=== PATIENT | male | born 1960 | race Caucasian/White ===

== ENCOUNTER 2025-06-07 13:03 | Outpatient (AMB) | payer OTHER, SELFPAY ==
--- OUTSIDE RECORDS SUMMARY | 2025-05-15 12:00 | XMS_ITS ---
Author Organization [facility] Address [address] [place] [id number] Care Team Providers Care Plant Ecologist Name Role Phone ELPIDIO VENTURA Primary Care Provider EBONY, NURSING [facility] [phone] REASON FOR VISIT N/36/Holter Monitor 48 hours SOCIAL HISTORY Sex Assigned At : Social History Observation Description Sex Assigned At Male Encounters Encounter Location Date Provider Diagnosis [address] [address] 05/15/2025 NURSING EBONY PLAN OF TREATMENT Next Appt Details Provider Name:ELPIDIO VENTURA, 08/10/2025 08:00:00 AM, [address] [place], [phone],
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
[2025-06-07 13:43] VITALS: BP 126/74; PULSE 63; O2SAT 99; BMI 29.1
--- OUTSIDE RECORDS SUMMARY | 2025-06-07 13:57 | XMS_ITS ---
Author Name [facility] Organization Unknown History of Medication Use Medication Directions Dispensed Refills Start Date End Date Stat us LipitorTakeNo date r ecordedNo form recordedNo frequency recordedNo route recordedNo set duration recordedNo set duration amount recordedactiveNo dosage strength recordedNo dosage strength units of measure recorded active Allergies Allergen Reaction Severity Comment Documented Date Source Statu s .NO KNOWN DRUG ALLERGIES [facility] Problems Problem Status Onset Date Problem Type Date of Resolution Source Hyperlipidemia, unspecified active ProblemAct [facility] Acute sinusitis, unspecified active 2024-04-01 ProblemAct [facility] Equinus - Short Achilles tendon, LEFT active 2024-07-27 ProblemAct [facility]POD[facility] [id number] - Contracture of tendo achilles active 2024-12-13 EncounterDiagnosisAct [facility] Plantar fasciitis active 2024-12-13 EncounterDiagnosisAct [facility] Heel pain active 2024-07-27 ProblemAct [facility] RCT Calcaneal spur, right foot active 2024-07-27 ProblemAct [facility] Encounters Encounter Type Encounter Reason Primary Diagnosis Location Date [facility] 2023 [facility] 04/01/2024 Care Team Organization Name Specialty Phone Email Start Date End [facility] Cesar Acevedo Primary [facility] 07/13/[facility] 07/12/2024 [facility] Not Disclosed Primary Care 04/02/2024 [facility] Not Disclosed Primary Care 04/01/2024
--- OUTSIDE RECORDS SUMMARY | 2025-06-07 13:57 | XMS_ITS | Clinical Summary ---
Author Organization [facility] Address [address] [place] [address] Care Team Providers Care Clay Products Glazer Name Role Phone Federally Excluded Kamar Perez MD Primar y Care Provider Medical History Medical History Date Comments Hyperlipidemia DX:Hyperlipidemi a Diabetes mellitus type 2, co ntrolled, with complications (CMS/HCC V24, CMS/HCC V28) DX:Diabetes mellitus type 2, controlled, with complications (HCC) Family History Medical History Relation Name Comments Parkinson's Disease Father Lung cancer Mother Relation Name Status Comments Father Mother Social History Tobacco Use Types Packs/Day Years Used Date Smoking Tobacco: Never Smokeless Tobacco: Never Alcohol Use Standard Drinks/Week Comments Yes 0 (1 standard drink = 0.6 oz pur e alcohol) Sex and Gender Information Value Date Recorded Sex Assigned at Not on file Legal Sex Male 8:43 AM EST Gender Identity Not on file Sexual Orientation Not on file Obstetrics History Plan of Treatment Health Maintenance Due Date Last Done Comments DTaP,Tdap,and Td Vaccines (1 - Tdap) 1977 Pneumococcal Vaccine: 50+ Ye ars (1 of 1 - PCV) 2008 Zoster Vaccines (1 of 2) 2008 COVID-19 Vaccine ( - 2023-2 5 season) 2024 Depression Screening 10/19/2024 Influenza Vaccine (#1) 2025 RSV Immunization Adult Patie nts (1 - 1-dose 75+ series) 2033 HIB Vaccines Aged Out No longer eligi ble based on patient's age to complete this topic HPV Vaccines Aged Out No longer eligi ble based on patient's age to complete this topic Hepatitis A Vaccines Aged Out No long er eligible based on patient's age to complete this topic Hepatitis B Vaccines Aged Out No long er eligible based on patient's age to complete this topic IPV Vaccines Aged Out No longer eligi ble based on patient's age to complete this topic MMR Vaccines Aged Out No longer eligi ble based on patient's age to complete this topic Meningococcal ACWY Vaccine Aged Out N o longer eligible based on patient's age to complete this topic Meningococcal B Vaccine Aged Out No l onger eligible based on patient's age to complete this topic RSV Immunization Patients Un anna 20 months Aged Out No longer eligible b ased on patient's age to complete this topic Varicella Vaccines Aged Out No longer eligible based on patient's age to complete this topic Care Teams Clay Products Glazer Relationship Specialty Start Date End Date Federally Excluded Kamar Perez MD [address] [place] [phone] PCP - General Internal Medicine 08/16/21
== END 2025-06-07 14:24 | disposition home or self-care (01) ==
LOC: HO.HSMS 13:04
PROVIDERS: PCP Internal Medicine; Visit Provider Physician Assistant Medical
DX: G47.19 Other hypersomnia (principal); R06.83 Snoring; R53.82 Chronic fatigue, unspecified
CPT/HCPCS: 99204

== ENCOUNTER 2025-09-11 10:58 | Outpatient (AMB) | payer OTHER, SELFPAY ==
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
[2025-09-11 11:04] VITALS: BP 124/86; PULSE 59; O2SAT 99; BMI 29.0
--- OUTSIDE RECORDS SUMMARY | 2025-09-11 14:05 | XMS_ITS | Clinical Summary ---
Author Organization [facility] Address [address] [place] [address] Phone Care Team Providers Care Cuff Runner Name Role Phone KristinaCesar robert Andrew MENDEZ Primary Care Provider [phone] Encounters Date Type Department Care Team Description 07/24/2025 Telephone Plastic & Reconstructive Surgery [facility] [address] [place] [address] Iliana Somers MA from Last 3 Months Medical History Medical History Date Comments Hyperlipidemia DX:Hyperlipidemi a Diabetes mellitus type 2, co ntrolled, with complications (CMS/HCC V24, CMS/HCC V28) DX:Diabetes mellitus type 2, controlled, with complications ([facility]) Family History Medical History Relation Name Comments [...] Health Maintenance Due Date Last Done Comments Colorectal Cancer Screening: Colonoscopy 1960 Diabetes: Annual GFR (Glomer ular Filtration Rate) 1958 Diabetes: Annual Foot Exam 1968 Diabetes: Annual Retina Eye Exam 1968 DTaP,Tdap,and Td Vaccines (1 - Tdap) 1977 Pneumococcal Vaccine: 50+ Ye ars (1 of 1 - PCV) 2008 Zoster Vaccines (1 of 2) 2008 Depression Screening 10/19/2024 COVID-19 Vaccine ( - 2024-2 6 season) 2025 Influenza Vaccine (#1) 2025 Abdominal Aortic Aneurysm (A AA) Screen 07/11/2025 Cholesterol Screening (Lipid Panel) 07/11/2025 Diabetes: Annual Urine Albumin-Creatinine Ratio (uACR) 07/11/2025 Diabetes: Blood Sugar Contro l Test (HGBA1C) 07/11/2025 Falls Risk Assessment 07/11/2025 Hepatitis C Screening 07/11/2025 Social Influencers of Health Screening 07/11/2025 RSV Immunization Adult Patie nts (1 - [...] on patient's age to complete this topic Insurance [facility] Care Teams Cuff Runner Relationship Specialty Start Date End Date Cesar Acevedo DO [address] [place] [id number] PCP - General Internal Medicine 07/12/25
--- OUTSIDE RECORDS SUMMARY | 2025-09-11 14:05 | XMS_ITS | Clinical Summary ---
Author Organization [facility] Address [address] [place] [address] Phone Care Team Providers Care Quill Picking Machine Operator Name Role Phone Cesar Acevedo DO Primary Care Provider +1- [phone] Allergies No known active allergies Medications atorvastatin (LIPITOR) 40 MG tablet Take 40 mg by mouth once. 2019 Active cholecalciferol (VITAMIN D3) 2,000 unit capsule daily. 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 Not on jarrod e 11/23/2023 Are you concerned about learning? Not on file 11/23/2023 No 11/23/2023 No 11/23/2023 Digital Access Answer Date Recorded No 11/23/2023 No 11/23/2023 Reliable internet access at home? Not on file 11/23/2023 Device with a working camera? Not on file Sex and Gender Information Value Date Recorded Sex Assigned at Male 11/27/2023 12:36 PM EST Legal Sex Male 2:33 PM EST Gender Identity Male 11/27/2023 12:36 PM EST Sexual Orientation Not on file Last Filed Vital Signs Vital Sign Reading Time Taken Comments Blood Pressure 136/82 12/04/2023 11:08 AM EST Pulse 63 12/04/2023 11:08 AM EST Temperature - - Respiratory Rate - - Oxygen Saturation - - Inhaled Oxygen Concentration - - Weight 88.9 kg (196 lb) 12/04/2023 11:08 AM EST Height 174.6 cm (5' 8.75 ) 12/04/2023 11:[address] shoes on Body Mass Index 29.16 12/04/2023 11:08 AM EST Plan of Treatment Health Maintenance Due Date Last Done Comments Adult Td,Tdap Booster 1958 LIPID PANEL 1958 DEPRESSION SCREENING 1970 HEPATITIS C SCREENING 1976 PNEUMOCOCCAL VACCINES (50+ y ears) (1 of 2 - PCV) 1977 ZOSTER VACCINES (1 of 2) 1977 SMOKING STATUS SCREENING (On ce After 26 Yrs) 1984 SCREENING FOR DIABETES 1993 COLOGUARD 2003 COLONOSCOPY 2003 COLORECTAL CANCER SCREENING 2003 FIT TEST 2003 FOBT 2003 SIGMOIDOSCOPY 2003 VIRTUAL COLONOSCOPY 2003 INFLUENZA VACCINE (#1) 2025 COVID-19 VACCINE (1 - 2024-2 6 season) 2025 RSV VACCINE (1 - 1-dose 75+ series) 2033 HEPATITIS A VACCINES Aged Out No long er eligible based on patient's age to complete this topic HIB VACCINES Aged Out No longer eligi ble based on patient's age to complete this topic MENINGOCOCCAL VACCINES (ACWY) Aged Out No longer eligible based on patient's age to complete this topic MENINGOCOCCAL VACCINES (B) Aged Out N o longer eligible based on patient's age to complete this topic Medical Devices Not on file [facility] [address] [facility] O O Care Teams Quill Picking Machine Operator Relationship Specialty Start Date End Date Cesar Acevedo DO [address] [place] [address] PCP - General Internal Medicine 11/23/23 Additional Source Comments The information contained in this document represents components of the legal health record. It is not the complete legal health record.[facility]
== END 2025-09-11 11:37 | disposition home or self-care (01) ==
LOC: HO.HSMS 10:59
PROVIDERS: PCP Internal Medicine; Visit Provider Physician Assistant Medical
DX: G47.19 Other hypersomnia (principal); R06.83 Snoring; R53.82 Chronic fatigue, unspecified
CPT/HCPCS: 99214

== ENCOUNTER → 2025-10-18 10:06 | Outpatient (REF) | payer OTHER, SELFPAY ==
--- OUTSIDE RECORDS SUMMARY | 2025-01-03 04:40 | XMS_ITS ---
Author Organization [facility] Address [address] [place] [address] Care Team Providers Care Operations Manager Assistant Name Role Phone DR. ELPIDIO VENTURA Primary Care Provider [phone] ZEINAB KESSLER [phone] REASON FOR VISIT JW/36/lower back pain Social History Sex Assigned At : Social History Observation Description Sex Assigned At Male Encounters Encounter Location Date Provider Diagnosis [address] [address] 01/03/2025 ZEIANB KESSLER Plan Of Treatment Next Appt Details Provider Name:ELPIDIO MONAE, 02/06/2026 08:00:00 AM, [address] [place] [address], [phone], Progress Notes * LEVI DELGADODOB:[birth year] (64 yo M)Acc No.[id number]:01/03/2025 Progress Notes Patient: LEVI CASTELLANOS Provider: Andrew Kessler PA-C :1960 A ge:64 Y S ex:Male Date:01/03/2025 Address: [address] [address], [address] [facility] Pcp:DR. ELPIDIO VENTURA Subjective: * Chief Complaints: * J W/36/lower back pain Billing Information: * Procedure Codes: * Electronic signature of KARENA KESSLER PA-C on 10/18/2025 at 11:08 AM EST Sign off status: Pending * Provider: Andrew Kessler PA-C Date: 0 01/03/2025 Generated for Ericka graf/Filiberto/Constance on: 1 11:08 AM EST
--- OUTSIDE RECORDS SUMMARY | 2025-05-15 11:00 | XMS_ITS ---
Author Organization [facility] Address [address] [place] [address] Care Team Providers Care Sample Display Preparer Name Role Phone DR. ELPIDIO VENTURA Primary Care Provider [place], NURSING Unavailable [phone] REASON FOR VISIT N/36/Holter Monitor 48 hours Social History Sex Assigned At : Social History Observation Description Sex Assigned At Male Encounters Encounter Location Date Provider Diagnosis [place] [phone] 05/15/2025 NURSING [place] Plan Of Treatment Next Appt Details Provider Name:ELPIDIO MONAE, 02/06/2026 08:00:00 AM, [address] [place] [address], [phone], Progress Notes * LEVI DELGADODOB:[birth year] (64 yo M)Acc No.[id number]:05/15/2025 Progress Notes Patient: LEVI CASTELLANOS Provider: Nilsa Mehta :1960 A ge:64 Y S ex:Male Date:05/15/2025 Address: [address] [address], [address] [id number] Pcp:DR. ELPIDIO VENTURA Subjective: * Chief Complaints: * N /36/Holter Monitor 48 hours * Electronic signature of NURS ING ILEANAFIELD on 10/18/2025 at 11:07 AM EST Sign off status: Pending * Provider: Harish denis, Nursing Date: 0 05/15/2025 Generated for Ericka graf/Filiberto/Constance on: 1 11:07 AM EST
--- OUTSIDE RECORDS SUMMARY | 2025-07-06 05:00 | XMS_ITS ---
Author Organization [facility] Address [address] [place] [address] Care Team Providers Care Internal Revenue Service Agent Name Role Phone DR. ELPIDIO VENTURA Primary Care Provider REASON FOR VISIT 36/CPX Social History Sex Assigned At : Social History Observation Description Sex Assigned At Male Encounters Encounter Location Date Provider Diagnosis [address] [address] 07/06/2025 ELPIDIO VENTURA Plan Of Treatment Next Appt Details Provider Name:ELPIDIO MONAE, 02/06/2026 08:00:00 AM, [address] [place], [address], Progress Notes * JESUSITALEVI VizcarraDOB:[birth year] (64 yo M)Acc No.[id number]:07/06/2025 Progress Notes Patient: LEVI CASTELLANOS Provider: Karthikeyan VENTURA MD :1960 A ge:64 Y S ex:Male Date:07/06/2025 Address: [address] [address], [address] [place] Subjective: * Chief Complaints: * 3 6/CPX * Electronic signature of DR. ELPIDIO VENTURA M.D. on 10/18/2025 at 11:07 AM EST Sign off status: Pending * Provider: Karthikeyan VENTURA MD Date: 0 07/06/2025 Generated for Ericka graf/Filiberto/Constance on: 1 11:07 AM EST
--- OUTSIDE RECORDS SUMMARY | 2025-10-18 11:08 | XMS_ITS | Clinical Summary ---
Author Organization [facility] Address [address] [place] [address] Phone Care Team Providers Care Technology Sales Specialist Name Role Phone KristinaCesar robert Andrew MENDEZ Primary Care Provider Encounters Date Type Department Care Team Description 07/24/2025 Telephone Plastic & Reconstructive Surgery [facility] [address] [place] [address] Iliana Somers MA from Last 3 Months Medical History Medical History Date Comments Hyperlipidemia DX:Hyperlipidemi a Diabetes mellitus type 2, co ntrolled, with complications (CMS/HCC V24, CMS/HCC V28) DX:Diabetes mellitus type 2, controlled, with complications ([facility]) Family History Medical History Relation Name Comments [...] on file Sexual Orientation Not on file Plan of Treatment Health Maintenance Due Date [...] patient's age to complete this topic Insurance [facility] Care Teams Technology Sales Specialist Relationship Specialty Start Date End Date Cesar Acevedo DO [address] [place] [address] PCP - General Internal Medicine 07/12/25
--- OUTSIDE RECORDS SUMMARY | 2025-10-18 11:08 | XMS_ITS | Clinical Summary ---
Author Organization [facility] Address [address] [place] [address] Phone Care Team Providers Care Occupational Analyst Name Role Phone Cesar Acevedo DO Primary Care Provider +1- [phone] Allergies No known active allergies Medications atorvastatin [...] topic Medical Devices Not on file [facility] [address] [facility] O O Care Teams Occupational Analyst Relationship Specialty Start Date End Date Cesar Acevedo DO [address] [place] [address] PCP - General Internal Medicine 11/23/23 Additional Source Comments The information contained in this document represents components of the legal health record. It is not the complete legal health record.[facility]
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
== END ==
LOC: HO.SL 10:06
PROVIDERS: PCP Internal Medicine; Visit Provider Physician Assistant Medical
DX: G47.19 Other hypersomnia (principal)
CPT/HCPCS: 95806